=== PATIENT | female | born 1995 | race African-American/Black ===

== ENCOUNTER 2018-09-17 11:35 | Emergency (ER) | payer OTHER ==
[~2018-09-17] VITALS: Ht 160 cm; Wt 87.7 kg
[2018-09-17 11:43] VITALS: BP 128/90
== END 2018-09-17 13:24 | disposition home or self-care (01) ==
LOC: ED 11:35
DX: J98.01 Acute bronchospasm (principal); R07.89 Other chest pain; F32.9 Major depressive disorder, single episode, unspecified; K58.9 Irritable bowel syndrome, unspecified; I45.10 Unspecified right bundle-branch block; Z98.890 Other specified postprocedural states; Z88.2 Allergy status to sulfonamides; Z88.0 Allergy status to penicillin; Z88.1 Allergy status to other antibiotic agents
CPT/HCPCS: J2930; J7613; J7644